=== PATIENT | female | born 1980 | race Caucasian/White ===

== ENCOUNTER 2020-09-23 08:25 | Outpatient (CLI) | payer BC | END 2020-09-23 08:26 | disposition home or self-care (01) | LOC: BICMAMMO 08:25 | PROVIDERS: ATTEND Family Medicine | DX: Z12.31 Encounter for screening mammogram for malignant neoplasm of breast (principal); Z80.3 Family history of malignant neoplasm of breast | CPT/HCPCS: 77063; 77067 ==

== ENCOUNTER 2021-07-14 08:30 | Outpatient (CLI) | payer BC | END 2021-07-14 08:31 | disposition home or self-care (01) | LOC: BICULT 08:30 | PROVIDERS: ATTEND Family Medicine | DX: R10.11 Right upper quadrant pain (principal); R16.0 Hepatomegaly, not elsewhere classified; K76.0 Fatty (change of) liver, not elsewhere classified | CPT/HCPCS: 76705 ==

== ENCOUNTER 2021-11-11 08:06 | Outpatient (CLI) | payer BC | END 2021-11-11 08:07 | disposition home or self-care (01) | LOC: BICMAMMO 08:06 | PROVIDERS: ATTEND Family Medicine | DX: Z12.31 Encounter for screening mammogram for malignant neoplasm of breast (principal); Z80.3 Family history of malignant neoplasm of breast | CPT/HCPCS: 77063; 77067 ==

== ENCOUNTER 2021-11-11 08:35 | Outpatient (CLI) | payer BC | END 2021-11-11 08:36 | disposition home or self-care (01) | LOC: BICRAD 08:35 | PROVIDERS: ATTEND Internal Medicine Rheumatology | DX: M46.1 Sacroiliitis, not elsewhere classified (principal); M47.818 Spondylosis without myelopathy or radiculopathy, sacral and sacrococcygeal region | CPT/HCPCS: 72202 ==

== ENCOUNTER 2023-08-22 07:58 | Emergency (ER) | payer BC ==
[2023-08-22] MEDS ORDERED: predniSONE 20 MG TAB ONE (08:47)
[2023-08-22] MEDS ORDERED: Famotidine 20 MG TAB ONE (08:47)
[2023-08-22] MEDS ORDERED: diphenhydrAMINE 50 MG CAP ONE (08:47)
== END 2023-08-22 09:50 | disposition home or self-care (01) ==
LOC: ERS 07:58
DX: T78.40XA Allergy, unspecified, initial encounter (principal)
CPT/HCPCS: 71046; J7512

== ENCOUNTER 2023-11-16 15:25 | Outpatient (CLI) | payer BC | END 2023-11-16 15:26 | disposition home or self-care (01) | LOC: BICMAMMO 15:25 | PROVIDERS: ATTEND Family Medicine | DX: Z12.31 Encounter for screening mammogram for malignant neoplasm of breast (principal); Z80.3 Family history of malignant neoplasm of breast | CPT/HCPCS: 77063; 77067 ==

== ENCOUNTER 2025-02-09 12:30 | Outpatient (CLI) | payer BC | END 2025-02-09 12:31 | disposition home or self-care (01) | LOC: BICMAMMO 12:30 | PROVIDERS: ATTEND Family Medicine | DX: Z12.31 Encounter for screening mammogram for malignant neoplasm of breast (principal); Z80.3 Family history of malignant neoplasm of breast | CPT/HCPCS: 77063; 77067 ==